=== PATIENT | male | born 1985 | race African-American/Black ===

== ENCOUNTER 2024-01-19 08:36 | Emergency (ER) | payer OTHER, MEDICAID, SELFPAY ==
--- NOTE | ~2024-01-19 | XR_ITS ---
EXAMINATION: XR chest 2V DATE: 01/19/2024 09:05 INDICATION: Chest pain TECHNIQUE: PA and lateral views of the chest were obtained. COMPARISON: None FINDINGS: The lungs are clear with no focal airspace opacities, pulmonary edema, pleural effusion or pneumothor ax. The cardiomediastinal silhouette is normal. Visualized bones and soft tissues are unremarkable. IMPRESSION: 1. No acute cardiopulmonary disease. Reviewed, dictated and finalized at location A.
--- NOTE | 2024-01-19 08:38 | ECG_ITS ---
Measurements Intervals [place] Rate: 67 P: 64 [place]: 139 QRS: -8 QRSD: 84 T: 53 QT: 384 QTc: 408 Interpretive Statements SINUS RHYTHM POSSIBLE LEFT ATRIAL ENLARGEMENT CONSIDER INFERIOR INFARCT, AGE INDETERMINATE ABNORMAL ECG NO PREVIOUS ECG AVAILABLE FOR COMPARISON Electronically Signed On 01-19-2024 13:24:02 CDT by Peter Leal D.O.
[2024-01-19 08:44] VITALS: BP 137/96; PULSE 69; RESP 16; TEMP 36.7; O2SAT 100
--- NOTE | 2024-01-19 08:52 | ED.CHESTPAIN ---
HPI - Chest Pain General Chief Complaint: Chest Pain Stated Complaint: Chest pain Time Seen by Provider: 01/19/24 08:52 Source: patient Mode of arrival: ambulatory Limitations: no limitations History of Present Illness HPI narrative: [place] is a 38-year-old male patient presenting to the clinic today with complaints of midsternal chest pain, shortness of breath, and hands locking up since 0400 this morning. He reports when he was having the sharp chest pain and shortness of breath he was breathing very quickly. Does have a history of anxiety. Rates the chest pain 7/10 when it was occurring however now his chest pain has resolved and he is breathing normally. His hands locking/numbness have also improved. Only medical history is high blood pressure. He is a current tobacco user. he denies hyperlipidemia or diabetes. He is also concerned about a possible cyst on his right upper eyelid. Patient was wearing two nicotine patches at the time of arrival. All his symptoms have resolved. Related Data Allergies Allergy/AdvReac Type Severity Reaction Status Date / Time No Known Allergies Allergy Verified 01/19/24 09:22 Review of Systems Review of Systems: Pertinent positives per HPI. Patient denies any fever, chills, rash, headache, visual changes, dizziness, cough, palpitations, nausea, vomiting, diarrhea, constipation, abdominal pain, or any urinary issues. PMFSH Comments At the time of my signature, I reviewed and agree with the nursing past medical, surgical, social, and family history. There is no relevant family history pertinent to the patient complaint. Exam Narrative: General: Well-developed, well nourished, in no apparent distress Head: Normocephalic, atraumatic Eyes: Pupils equally round and reactive to light bilaterally, EOM intact, sclera and conjunctive clear, no discharge, left lids normal, right upper lid with a firm nontender mass-appears to be a chalazion Ears: TMs intact and clear, ear canals clear, no drainage, grossly hearing normal. Nose: Nares patent, no discharge, no inflammation, no sinus tenderness. Mouth: Oral pharynx without lesions or masses, good dentition, MMM. Neck: Supple, trachea midline, no enlargement of anterior or posterior cervical nodes, no thyroid masses or goiter palpable. Cardio: Regular rate and rhythm, s1 and s2 normal, no murmur appreciated. Resp: Clear to auscultation bilaterally, no rhonchi, rales, wheezing or rubs Course Course Emergency Course: Portions of this record may have been created with voice recognition software. Vital Signs Vital signs: Vital Signs Temperature 36.7 C 01/19/24 08:44 Pulse Rate 69 01/19/24 08:44 Respiratory Rate 16 01/19/24 08:44 Blood Pressure 137/96 H 01/19/24 08:44 Pulse Oximetry 100 01/19/24 08:44 Oxygen Delivery Room Air 01/19/24 08:44 Temperature 36.7 C 01/19/24 08:44 Pulse Rate 69 01/19/24 08:44 Respiratory Rate 16 01/19/24 08:44 Blood Pressure 137/96 H 01/19/24 08:44 Pulse Oximetry 100 01/19/24 08:44 Oxygen Delivery Room Air 01/19/24 08:44 Vital signs reviewed MDM - Chest Pain MDM Narrative Medical decision making narrative: At the time of visit patient is resting comfortably on the exam table. Patient appears to be nontoxic. EKG: EKG shows sinus rhythm with heart rate of 67 beats per minute without ST elevation or ST depression. No T-wave inversions Labs: CBC shows white blood cell count of 4.9, H&H 14.7 and 45.5, platelet count 344, anti coagulation studies within normal limits, sodium levels 136, potassium of 4.1, chloride 102, carbon dioxide of 28, BUN of 9, creatinine 0.7, GFR is greater than 60, glucose is 104, total bili is 1.8, normal liver function tests, troponin is negative at less than 0.012. Lipase 81 Diagnostics: Chest x-ray shows no acute cardiopulmonary process. Plan: Patient's heart score is 1. I suspect patient had anxiety likely due applying two ni
[2024-01-19 08:53] VITALS: PULSE 67; O2SAT 100
[2024-01-19 08:56] LABS: Basophils Percent Auto 0.4 % (0.2-1.2); Eosinophils Absolute Auto 0.1 K/mm3 (0-0.3); Eosinophils Percent Auto 2.9 % (0-4.4); Hematocrit 45.5 % (42.0-52.0); Hemoglobin 14.7 g/dL (14.0-18.0); Immature Granulocyte Absolute 0.01 K/mm3 (0.00-0.031); Immature Granulocyte Percent A 0.2 % (0-0.5); Lymphocytes Absolute Auto 2.43 K/mm3 (0.9-3.2); Lymphocytes Percent Auto 49.9 % (18.3-44.2); Mean Corpuscular HGB Conc 32.3 g/dl (32-36); Mean Corpuscular Hemoglobin 26.6 pg (26-34); Mean Corpuscular Volume 82.3 fl (80-100); Mean Platelet Volume 8.9 fl (7.4-10.4); Monocytes Absolute Auto 0.5 K/mm3 (0.1-0.6); Monocytes Percent Auto 11.1 % (2.6-8.5); Neutrophils Absolute Auto 1.7 K/mm3 (1.3-6.7); Neutrophils Percent Auto 35.5 % (45.5-73.1); Platelet Count Result 344 k/mm3 (150-375); Red Blood Count 5.53 M/mm3 (4.6-6.20); Red Cell Distribution Width 14.8 % (11.5-14.5); White Blood Count 4.9 K/mm3 (4.5-10.0)
[2024-01-19 08:58] VITALS: PULSE 70; RESP 20; O2SAT 100
[2024-01-19 09:05] VITALS: PULSE 67; RESP 16; O2SAT 100
[2024-01-19 09:06] LABS: Alanine Aminotransferase 44 U/L (6-50); Albumin Level 4.5 g/dL (3.5-5.1); Alkaline Phosphatase 54 U/L (38-126); Anion Gap 6 mmol/L (8-16); Aspartate Amino Transferase 47 U/L (17-59); Bilirubin,Total 1.8 mg/dL (0.2-1.3); Blood Urea Nitrogen 9 mg/dL (9-20); Calcium 9.5 mg/dL (8.4-10.2); Carbon Dioxide 28 mmol/L (22-30); Chloride 102 mmol/L (98-107); Estimated CRCL calculation 86 ml/min; Estimated Glomerular Filt Rate > 60; Glucose 104 mg/dL (65-110); Lipase 81 U/L (23-300); Potassium 4.1 mmol/L (3.4-5.0); Sodium 136 mmol/L (137-145)
[2024-01-19 09:07] VITALS: O2SAT 100
[2024-01-19 09:07] LABS: INR 0.9; Prothrombin Time 12.8 Seconds (11.1-14.7)
[2024-01-19 09:17] LABS: Troponin I < 0.012 ng/mL (0.000-0.034)
[2024-01-19 09:41] VITALS: BP 143/89; PULSE 75; RESP 16; TEMP 36.7; O2SAT 100
== END 2024-01-19 09:43 | disposition home or self-care (01) ==
PROVIDERS: Emergency Medicine; Emergency Provider Nurse Practitioner Family
DX: R07.89 Other chest pain (principal); H00.11 Chalazion right upper eyelid; F41.9 Anxiety disorder, unspecified
CPT/HCPCS: 36415; 71046; 80053; 83690; 84484; 85025; 85610; 85730; 93005; 99284